=== PATIENT | female | born 1980 | race Hispanic/Latino ===

== ENCOUNTER 2017-10-27 17:50 | Emergency (ER) | payer OTHER ==
[2017-10-27 18:00] VITALS: RESP 18; O2SAT 100
[2017-10-27] MEDS ORDERED: Sodium Chloride 0.9% 1,000 ML IV STA ×2 (18:39→22:51)
[2017-10-27] MEDS ORDERED: DiphenhydrAMINE 50 mg/ml Inj IVP STA ×2 (18:39→22:51)
[2017-10-27 19:32] LABS: BASO # 0.1 K/uL (0.0-0.2); BASO % 0.5 % (0.0-2.0); EOS # 0.1 K/uL (0.0-0.7); EOS % 1.2 % (0.0-4.0); HEMOGLOBIN 13.3 g/dL (12.0-16.0); LYMPH # 3.6 K/uL (1.0-4.3); LYMPH % 35.3 % (20.0-40.0); MEAN CORPUSCULAR HEMOGLOBIN 29.7 pg (27.0-31.0); MEAN PLATELET VOLUME 9.2 fl (7.2-11.7); MONO # 0.7 K/uL (0.0-0.8); MONO % 7.2 % (0.0-10.0); NEUT # 5.7 K/uL (1.8-7.0); NEUT % 55.8 % (50.0-75.0); NRBC % 0.1 % (0.0-0.0); RBC 4.48 Mil/uL (3.80-5.20); RED CELL DISTRIBUTION WIDTH 13.2 % (11.5-14.5); WHITE BLOOD COUNT 10.1 K/uL (4.8-10.8)
[2017-10-27 19:37] LABS: ALB/GLOB RATIO 1.2 (1.0-2.1); ALBUMIN 3.8 g/dL (3.5-5.0); CALCIUM 8.7 mg/dL (8.4-10.2); GFR AFRICAN-AMERICAN > 60; GFR NON-AFRICAN AMERICAN > 60
[2017-10-27 19:40] LABS: ALT/SGPT 31 U/L (9-52); AST/SGOT 29 U/L (14-36); BLOOD UREA NITROGEN 9 mg/dl (7-17)
--- NOTE | 2017-10-27 20:05 | ED PDOC ---
HPI: Female Pain Time Seen by Provider: 10/27/17 18:01 Chief Complaint (Nursing): Female Genitourinary Chief Complaint (Provider): Female Genitourinary History Per: Patient History/Exam Limitations: no limitations Onset/Duration Of Symptoms: Days (x3) Current Symptoms Are (Timing): Still Present Additional Complaint(s): 37 year old female with no past medical history presents to the ED with headache and vaginal bleeding associated with lower abdominal pain, onset 3 days ago. Patient reports of vaginal bleeding with passage of small clots and lower abdominal pain. Patient states she is currently on OCP. Patient reports her last menstrual period was about a week and a half ago and states her periods are a normal 28 day cycle. Patient has only had breakthrough bleeding once prior and has been on the same OCP for approximately two years. Additionally patient complains of a headache, described as a throbbing sensation to both temples associated with nausea, and photosensitivity for approximately 3 days. Patient reports of taking Advil with no relief. Otherwise : (-) fever, (-) vomiting, (-) trauma, (-) injury, (-) URI symptoms. Past Medical History Reviewed: Historical Data, Nursing Documentation, Vital Signs Vital Signs: Last Vital Signs Temp 97.7 F 10/27/17 17:57 Pulse 71 10/27/17 17:57 Resp 18 10/27/17 17:57 BP 144/97 H 10/27/17 17:57 Pulse Ox 100 10/27/17 17:57 - Medical History PMH: No Chronic Diseases - Surgical History Surgical History: Cholecystectomy - Family History Family History: States: Diabetes Other Family History: Cancer - Social History Current smoker - smoking cessation education provided: No - Home Medications Home Medications: Ambulatory Orders Medication Instructions Recorded Acetaminophen/Butalbital/Caf 1 tab PO Q6 PRN #12 tab 10/28/17 [Fioricet] - Allergies Allergies/Adverse Reactions: Allergies Allergy/AdvReac Type Severity Reaction Status Date / Time Penicillins Allergy RASH Verified 10/27/17 17:57 Review of Systems ROS Statement: Except As Marked, All Systems Reviewed And Found Negative Constitutional: Negative for: Fever Gastrointestinal: Positive for: Nausea, Abdominal Pain. Negative for: Vomiting Genitourinary Female: Positive for: Vaginal Bleeding Neurological: Positive for: Headache Physical Exam - Reviewed Nursing Documentation Reviewed: Yes Vital Signs Reviewed: Yes - Physical Exam Comments: GENERAL APPEARANCE: Patient is awake, alert, oriented x 3, in mild painful distress. SKIN: Warm, dry; (-) cyanosis, (-) rash. HEAD: (-) scalp swelling or tenderness, (-) temporal artery tenderness. EYES: (-) conjunctival pallor, (-) scleral icterus. ENMT: (-) sinus tenderness; mucous membranes are moist.. NECK: (-) tenderness, (-) stiffness, (-) meningismus, (-) lymphadenopathy. CHEST AND RESPIRATORY: (-) rales, (-) rhonchi, (-) wheezes; breath sounds equal bilaterally. HEART AND CARDIOVASCULAR: (-) irregularity; (-) murmur, (-) gallop. ABDOMEN AND GI: Soft; (-) tenderness (-) distention. Bowel sounds active; (-) guarding, (-) rebound, (-) palpable masses, (-) CVA tenderness. EXTREMITIES: (-) deformity, (-) edema, (+) distal pulses. NEURO AND PSYCH: Mental status as above; (-) focal findings.title curator: Pupils reactive; EOMI; (-) facial asymmetry; tongue and uvula midline. Strength symmetric. - Laboratory Results Result Diagrams: 10/27/17 19:15 10/27/17 19:15 - ECG O2 Sat by Pulse Oximetry: 100 (RA) Pulse Ox Interpretation: Normal (R) Medical Decision Making Medical Decision Making: Time: 1839 Plan: -- Toradol 30 mg IVP -- Reglan 10 mg IVP -- Sodium Chloride IV 1000 MLS/HR -- Benadryl 25 mg IVP -- IV Insertion Time: 1851 Plan: -- ED Urine Dipstick -- ED Urine Time: 1914 Plan: -- CBC with differentials -- CMP Uhcg (-) UA +blood, no evidence of UTI Labs wnl. On re-evaluation, patient resting comfortably in no acute distress. Reports her headache is improving, however she does not feel comfortable going home yet. Repeat neuro exam shows no focal findings. Case endorsed to ENRIKE Gasca at 1999 pending re-evaluation and disposition. Scribe Attestation: Documented by Claire Tony, acting as a scribe for Dottie Corrales PA-C. Provider Scribe Attestation: All medical record entries made by the Scribe were at my direction and personally dictated by me. I have reviewed the chart and agree that the record accurately reflects my personal performance of the history, physical exam, medical decision making, and the department course for this patient. I have also personally directed, reviewed, and agree with the discharge instructions and disposition. Disposition - Clinical Impression Clinical Impression: DUB (dysfunctional uterine bleeding), Headache - Patient ED Disposition Is Patient to be Admitted: Transfer of Care (Case endorsed to ENRIKE Gasca at 2000 pending re-evaluation and disposition.) Counseled Patient/Family Regarding: Studies Performed, Diagnosis, Need For Followup, Rx Given - Disposition Referrals: [facility] [Outside] Disposition: Transfer of Care Disposition Time: 20:00 Condition: STABLE Additional Instructions: Thank you for letting us take care of you today. You were treated for DUB, migraine headache. The emergency medical care you received today was directed at your acute symptoms. If you were prescribed any medication, please fill it and take as directed. It may take several days for your symptoms to resolve. Return to the Emergency Department if your symptoms worsen, do not improve, or if you have any other problems. Please contact your doctor in 2 days for re-evaluation and follow up. Bring any paperwork you were given at discharge with you along with any medications you are taking to your follow up visit. Our treatment cannot replace ongoing medical care by a primary care provider (PCP) outside of the emergency department. Thank you for allowing the [facility] team to be part of your care today. Prescriptions: Acetaminophen/Butalbital/Caf [Fioricet] 1 tab PO Q6 PRN #12 tab PRN Reason: Headache Instructions: Migraine Headache (DC), Heavy Periods (DC) Forms: [employer] (Bulgarian) - PA / ZONING TECHNICIAN / Resident Statement MD/DO has reviewed & agrees with the documentation as recorded.
--- NOTE | 2017-10-27 20:09 | ED PDOC ---
HPI: Female Pain Time Seen by Provider: 10/27/17 18:01 Chief Complaint (Nursing): Female Genitourinary Chief Complaint (Provider): Female Genitourinary History Per: Patient History/Exam Limitations: no limitations Onset/Duration Of Symptoms: Days (3) Current Symptoms Are (Timing): Still Present Additional Complaint(s): 37 year old female with no past medical history presents to the ED with headache and vaginal bleeding associated with lower abdominal pain, onset 3 days ago. Patient reports of vaginal bleeding with passage of small clots and lower abdominal pain. Patient states she is currently on OCP. Patient reports her last menstrual period was about a week and a half ago and states her periods are a normal 28 day cycle. Patient has only had breakthrough bleeding once prior and has been on the same OCP for approximately two years. Additionally patient complains of a throbbing sensation to both temples associated with on and off headache, nausea, and photosensitivity for approximately 3 days. Patient reports of taking Advil with no relief. Otherwise : (-) fever, (-) vomiting, (-) trauma, (-) injury, (-) URI symptoms. PMD: None Provided Past Medical History Reviewed: Historical Data, Nursing Documentation, Vital Signs Vital Signs: Last Vital Signs Temp 97.7 F 10/27/17 17:57 Pulse 71 10/27/17 17:57 Resp 18 10/27/17 17:57 BP 144/97 H 10/27/17 17:57 Pulse Ox 100 10/27/17 17:57 - Medical History PMH: No Chronic Diseases - Surgical History Surgical History: Cholecystectomy - Family History Family History: States: Diabetes Other Family History: Cancer - Social History Current smoker - smoking cessation education provided: No Alcohol: None Drugs: Denies - Home Medications Home Medications: Ambulatory Orders Medication Instructions Recorded Metoclopramide HCl [Reglan] 10 mg PO QID PRN #20 tablet 10/27/17 Naproxen 500 mg PO BID #30 tab 10/27/17 - Allergies Allergies/Adverse Reactions: Allergies Allergy/AdvReac Type Severity Reaction Status Date / Time Penicillins Allergy RASH Verified 10/27/17 17:57 Review of Systems ROS Statement: Except As Marked, All Systems Reviewed And Found Negative Constitutional: Positive for: Other (photosensitivity ) Gastrointestinal: Positive for: Nausea, Abdominal Pain (lower ). Negative for: Vomiting Genitourinary Female: Positive for: Vaginal Bleeding (with passage of small clots ) Neurological: Positive for: Headache (throbbing to both temples ) Physical Exam - Reviewed Nursing Documentation Reviewed: Yes Vital Signs Reviewed: Yes - Physical Exam Comments: GENERAL APPEARANCE: Patient is awake, alert, oriented x 3, in mild painful distress. SKIN: Warm, dry; (-) cyanosis, (-) rash. HEAD: (-) scalp swelling or tenderness, (-) temporal artery tenderness. EYES: (-) conjunctival pallor, (-) scleral icterus. ENMT: (-) sinus tenderness; mucous membranes are moist.. NECK: (-) tenderness, (-) stiffness, (-) meningismus, (-) lymphadenopathy. CHEST AND RESPIRATORY: (-) rales, (-) rhonchi, (-) wheezes; breath sounds equal bilaterally. HEART AND CARDIOVASCULAR: (-) irregularity; (-) murmur, (-) gallop. ABDOMEN AND GI: Soft; (-) tenderness (-) distention. Bowel sounds active; (-) guarding, (-) rebound, (-) palpable masses, (-) CVA tenderness. EXTREMITIES: (-) deformity, (-) edema, (+) distal pulses. NEURO AND PSYCH: Mental status as above; (-) focal findings.material movers: Pupils reactive; EOMI; (-) facial asymmetry; tongue and uvula midline. Strength and DTRs symmetric. Babinski normal bilaterally. - Laboratory Results Result Diagrams: 10/27/17 19:15 10/27/17 19:15 - ECG O2 Sat by Pulse Oximetry: 100 Medical Decision Making Medical Decision Making: Time: 1839 Plan: -- Toradol 30 mg IVP -- Reglan 10 mg IVP -- Sodium Chloride IV 1000 MLS/HR -- Benadryl 25 mg IVP -- IV Insertion Time: 1851 Plan: -- ED Urine Dipstick -- ED Urine Time: 1914 Plan: -- CBC with differentials -- CMP Scribe Attestation: Documented by Claire Tony, acting as a scribe for Dottie Corrales PA-C. Provider Scribe Attestation: All medical record entries made by the Scribe were at my direction and personally dictated by me. I have reviewed the chart and agree that the record accurately reflects my personal performance of the history, physical exam, medical decision making, and the department course for this patient. I have also personally directed, reviewed, and agree with the discharge instructions and disposition. Disposition - Disposition
--- NOTE | 2017-10-27 21:18 | ED PDOC ---
- Laboratory Results Result Diagrams: 10/27/17 19:15 10/27/17 19:15 - ECG O2 Sat by Pulse Oximetry: 100 (RA) - Progress ED Course And Treament: Case endorsed to investment underwriter from Antoni GOMEZ pending re-eval 21:15 Patient states headache only slightly improved. States headache started yesterday am, seems to worsen with bright lights, noise , and when vaginal bleeding becomes heavier. Located frontal scalp Will order CT head. Tylenol PO ordered EXAM: CT Head Without Intravenous Contrast EXAM DATE/TIME: 10/27/2017 9:16 PM CLINICAL HISTORY: 37 years old, female; Pain; Headache; Headache not specified TECHNIQUE: Axial computed tomography images of the head/brain without intravenous contrast. All CT scans at this facility use at least one of these dose optimization techniques: automated exposure control; mA and/or kV adjustment per patient size (includes targeted exams where dose is matched to clinical indication); or iterative reconstruction. Coronal and sagittal reformatted images were created and reviewed. COMPARISON: There are no prior studies for comparison. FINDINGS: Brain and ventricles: Ventricles are normal in size and configuration. There is no midline shift. There are no intra-axial or extra-axial mass lesions or areas of hemorrhage. There are no abnormal fluid collections. Quezada-white differentiation is maintained. Bones: Cranial vault is intact. Soft tissues: unremarkable Sinuses: There is no acute sinusitis. There is a retention cyst/polyp in the right sphenoid sinus. Orbits: Orbital contents are unremarkable. Ears and mastoids: Middle ears and mastoids are unremarkable IMPRESSION: No acute intracranial Patient notes improvement of headache after IV phenergan, IV benadryl given. States she would like to be discharged at this time. Patient educated on findings, discharged with rx Fioricet Advised follow up [employer] 2-3 days. Follow up PMD Return precautions given Disposition - Clinical Impression Clinical Impression: DUB (dysfunctional uterine bleeding), Headache - POA Present On Arrival: None - Disposition Referrals: [facility] [Outside] Disposition: Routine/Home Disposition Time: 00:15 Condition: IMPROVED Additional Instructions: Thank you for letting us take care of you today. You were treated for DUB, migraine headache. The emergency medical care you received today was directed at your acute symptoms. If you were prescribed any medication, please fill it and take as directed. It may take several days for your symptoms to resolve. Return to the Emergency Department if your symptoms worsen, do not improve, or if you have any other problems. Please contact your doctor in 2 days for re-evaluation and follow up. Bring any paperwork you were given at discharge with you along with any medications you are taking to your follow up visit. Our treatment cannot replace ongoing medical care by a primary care provider (PCP) outside of the emergency department. Thank you for allowing the [facility] team to be part of your care today. Prescriptions: Acetaminophen/Butalbital/Caf [Fioricet] 1 tab PO Q6 PRN #12 tab PRN Reason: Headache Instructions: Migraine Headache (DC), Heavy Periods (DC) Forms: [employer] (Icelandic)
--- NOTE | 2017-10-27 22:32 | CT ---
EXAM: CT Head Without Intravenous Contrast EXAM DATE/TIME: 10/27/2017 9:16 PM CLINICAL HISTORY: 37 years old, female; Pain; Headache; Headache not specified TECHNIQUE: Axial computed tomography images of the head/brain without intravenous contrast. All CT scans at this facility use at least one of these dose optimization techniques: automated exposure control; mA and/or kV adjustment per patient size (includes targeted exams where dose is matched to clinical indication); or iterative reconstruction. Coronal and sagittal reformatted images were created and reviewed. COMPARISON: There are no prior studies for comparison. FINDINGS: Brain and ventricles: Ventricles are normal in size and configuration. There is no midline shift. There are no intra-axial or extra-axial mass lesions or areas of hemorrhage. There are no abnormal fluid collections. Quezada-white differentiation is maintained. Bones: Cranial vault is intact. Soft tissues: unremarkable Sinuses: There is no acute sinusitis. There is a retention cyst/polyp in the right sphenoid sinus. Orbits: Orbital contents are unremarkable. Ears and mastoids: Middle ears and mastoids are unremarkable IMPRESSION: No acute intracranial
[2017-10-27] MEDS ORDERED: Promethazine 25MG/50ML NS IVPB STA (23:02)
[2017-10-27] MEDS ORDERED: DiphenhydrAMINE 50 mg/ml Inj ONE (23:05)
[2017-10-28 05:52] VITALS: BP 128/88; PULSE 82; TEMP 98.2
== END 2017-10-28 00:20 | disposition home or self-care (01) ==
LOC: H.ER 17:50
DX: N93.8 Other specified abnormal uterine and vaginal bleeding (principal); R51 Headache; Z88.0 Allergy status to penicillin
CPT/HCPCS: 70450; 80053; 81025; 85025; 96361; 96374; 96375; 96376; 99284; J1200; J1885; J2405; J2550; J2765; J7030